=== PATIENT | female | born 1970 | race African-American/Black ===

== ENCOUNTER 2018-09-09 15:47 | Outpatient (CLI) | payer OTHER ==
--- NOTE | 2018-09-10 09:06 | Mammography Report ---
Screening mammogram: Baseline examination. Routine views demonstrates symmetrically distributed heterogeneously dense fibroglandular pattern. In the central and lateral portions of the right breast there are focal asymmetries. The remainder of the exam is unremarkable. CAD used. Impression: Right breast asymmetries. Recommendation: Additional compression imaging of the right breast and ultrasound as needed. BI-RADS CATEGORY: 0 = Needs additional imaging evaluation ACR BI-RADS MAMMOGRAPHIC CODES: 0 = Needs additional imaging evaluation; 1 = Negative; 2 = Benign; 3 = Probably benign; 4 = Suspicious; 5 = Malignant; 6 = Known biopsy-proven malignancy COMMENT: 1. Dense breast tissue, i.e., adenosis, fibrocystic changes, etc., may obscure an underlying neoplasm. 2. Approximately 10% of cancers are not detected with mammography. 3. A negative mammography report should not delay biopsy if a clinically suspicious mass is present.
== END 2018-09-09 15:48 | disposition home or self-care (01) ==
LOC: SPVWC 15:47
PROVIDERS: ATTEND Family Medicine
DX: Z12.31 Encounter for screening mammogram for malignant neoplasm of breast (principal)
CPT/HCPCS: 77067

== ENCOUNTER 2018-09-28 15:24 | Outpatient (CLI) | payer OTHER ==
--- NOTE | 2018-09-28 15:57 | Mammography Report ---
RIGHT DIGITAL DIAGNOSTIC MAMMOGRAM : 09/28/18 15:24:00 CLINICAL: Recall for asymmetries. COMPARISON:09/09/18 screening FINDINGS: Additional mammographic views were performed and are negative. IMPRESSION: Negative Mammogram. BI-RADS CATEGORY: 1 -- Negative RECOMMENDATION: Routine mammographic screening in one year. ACR BI-RADS MAMMOGRAPHIC CODES: 0 = Needs additional imaging evaluation; 1 = Negative; 2 = Benign; 3 = Probably benign; 4 = Suspicious; 5 = Malignant; 6 = Known biopsy-proven malignancy COMMENT: 1. Dense breast tissue, i.e., adenosis, fibrocystic changes, etc., may obscure an underlying neoplasm. 2. Approximately 10% of cancers are not detected with mammography. 3. A negative mammography report should not delay biopsy if a clinically suspicious mass is present. COMMENT: Patient follow-up letters are generated via our [employer] application.
== END 2018-09-28 15:25 | disposition home or self-care (01) ==
LOC: SPVWC 15:24
PROVIDERS: ATTEND Family Medicine
DX: R92.8 Other abnormal and inconclusive findings on diagnostic imaging of breast (principal)